=== PATIENT | male | born 1990 | race Caucasian/White ===

== ENCOUNTER 2017-05-03 13:31 | Emergency (ER) | payer BC ==
--- NOTE | ~2017-05-03 | CR111 ---
[facility]. [facility] A Service of [facility] RADIOLOGY TEXT RESULTS PATIENT: FABIO TOWNSEND LOCATION: SED : [birth year] UNIT #: [id number] AGE: [address]: Nessa Roman SEX: M ORDER DR: [id number] [address] [address] [id number] E MR#: [id number] Acc #: [id number] NAME: FABIO TOWNSEND. : 1990 SEX: M STUDY DATE/TIME: 05/03/2017 14:01 UNIT: SED ROOM: STUDY DESCRIPTION: CR Finger 2 View 3rd Rt Attending Physician: Nessa Roman Pa-C Ordering Physician: Nessa Roman Pa-C Primary Care Physician: Piyush Hoyt Jr., M.D. MEDICAL IMAGING REPORT This report is preliminary unless electronic signature is present. EXAM 2 views of the right third finger 05/03/2017 HISTORY Right third finger pain with laceration injury, hit finger on a car transmission today. COMPARISON Right hand radiographs 05/31/2014. FINDINGS There is no evidence of fracture, dislocation, or radiopaque foreign body. IMPRESSION Normal right third finger. Dictated by... Latoya Muñoz M.D. THIS IS AN ELECTRONICALLY VERIFIED REPORT Latoya Muñoz M.D. at 05/05/2017 2:17 PM [facility]/latanya TD: 05/03/2017 21:53 JOB #: [id number] MEDICAL IMAGING REPORT Page 1 of 1
[~2017-05-03 13:31] MED LIST: NO MEDICATIONS; PERCOCET5/325 PO; SILVADENE TOP; VOLTAREN50 MG PO
== END 2017-05-03 16:18 | disposition home or self-care (01) ==
LOC: SED 13:31
DX: S61.212A Laceration without foreign body of right middle finger without damage to nail, initial encounter (principal); F17.210 Nicotine dependence, cigarettes, uncomplicated; W22.8XXA Striking against or struck by other objects, initial encounter; Y92.009 Unspecified place in unspecified non-institutional (private) residence as the place of occurrence of the external cause; Z23 Encounter for immunization
CPT/HCPCS: 12001; 73140; 90471; 90715; 99283

== ENCOUNTER 2017-05-03 20:33 | Emergency (ER) | payer BC | END 2017-05-03 21:25 | disposition home or self-care (01) | LOC: SED 20:33 | DX: S61.212A Laceration without foreign body of right middle finger without damage to nail, initial encounter (principal); F17.210 Nicotine dependence, cigarettes, uncomplicated; R50.9 Fever, unspecified; W22.8XXA Striking against or struck by other objects, initial encounter | CPT/HCPCS: 99282 ==